=== PATIENT | male | born 1950 | race Asian ===

== ENCOUNTER 2022-03-23 12:13 | Emergency (ER) | payer OTHER, MEDICARE ==
[~2022-03-23] VITALS: Ht 167.6 cm; Wt 86.2 kg
[2022-03-23 12:23] VITALS: BP_SYST 178
--- NOTE | 2022-03-23 16:02 | NUR ---
RECEIVED PT FROM KWASI HOWE. PT HAS C/O LEFT EYE REDNESS, DISCHARGE AND SWELLING, PT IS S/P CATARACT SURGERY 3 WEEKS AGO. PT IS AAOX4. NORMAL S1S2. RESP E/U. ON R/A. DENIES N/V/D/C. PT HAS BUE TRACE EDEMA. SKIN CDI, WARM, INTACT, DISTAL PULSES NORMAL. DENIES PAIN. DAUGHTER ACCOMPANYING PT.
--- NOTE | 2022-03-23 16:04 | NUR ---
Patient to ER [facility] to [facility] for evaluation. Side rails up. Report given to KWASI EVANS.
--- NOTE | 2022-03-23 16:10 | NUR ---
DR. ELIZABETH MET WITH AND ASSESSED PT.
[2022-03-23] MEDS ORDERED: ERYEYE EACH EYE (16:26)
[2022-03-23] MEDS ORDERED: OFLO5DRO6 LEFT EYE (16:26)
[2022-03-23 16:49] VITALS: BP_SYST 162
--- NOTE | 2022-03-23 16:53 | NUR ---
Patient given written and verbal discharge instructions and verbalizes understanding. ER MD discussed with patient the results and treatment provided. Patient in stable condition. ID arm band removed. Rx of erythromycin, ofloxacin given. Patient educated on pain management and to follow up with PMD. Pain Scale 0/10. Opportunity for questions provided and answered. Medication side effect fact sheet provided.
== END 2022-03-23 16:49 | disposition home or self-care (01) ==
LOC: SED 12:13
DX: H10.32 Unspecified acute conjunctivitis, left eye (principal); H57.12 Ocular pain, left eye; Z79.899 Other long term (current) drug therapy
CPT/HCPCS: 99283

== ENCOUNTER 2022-08-28 19:35 | Inpatient (IN) | payer OTHER ==
[~2022-08-28] VITALS: Ht 172.7 cm; Wt 88.9 kg
[~2022-08-28 19:35] MED LIST: ERYEYE EACH EYE; OFLO5DRO6 LEFT EYE
[2022-08-28 19:40] VITALS: BP_SYST 145
[2022-08-28] MEDS ORDERED: NACL 0.9% 1,000 ML IV ONE (20:15)
[2022-08-28] MEDS ORDERED: PANTOPRAZOLE SODIUM 80 MG in NS 100 ML IV ONE (20:15)
[2022-08-28] MEDS ORDERED: ONDANSETRON HCL 4 MG/2 ML VIAL IVP ONE (20:15)
[2022-08-28 20:25] LABS: BASOPHILS % (AUTO) 0.4 % (0.0-2.0); EOSINOPHILS # (AUTO) 0.2 K/uL (0.0-0.4); EOSINOPHILS % (AUTO) 1.7 % (0.0-4.0); HEMATOCRIT 28.6 % (36-54); HEMOGLOBIN 9.8 g/dL (14.0-18.0); LYMPHOCYTES # (AUTO) 2.2 K/uL (1.0-5.5); LYMPHOCYTES % (AUTO) 22.2 % (20.5-51.5); MEAN CORPUSCULAR HEMOGLOBIN 34 pg (27-31); MEAN CORPUSCULAR HGB CONC 34 % (32-36); MEAN CORPUSCULAR VOLUME 98 fL (79.0-98.0); MONOCYTES # (AUTO) 0.8 K/uL (0.0-1.0); MONOCYTES % (AUTO) 8.1 % (1.7-9.3); NEUTROPHILS # (AUTO) 6.8 K/uL (1.8-7.7); NEUTROPHILS % (AUTO) 67.6 % (40.0-70.0); PLATELET COUNT (AUTO) 132 K/uL (130-430); RED BLOOD CELL COUNT(AUTO) 2.92 MIL/uL (4.2-6.2); RED CELL DISTRIBUTION WIDTH 14.9 % (9.0-15.0); WHITE BLOOD COUNT (AUTO) 10.1 K/uL (4.8-10.8)
[2022-08-28] MEDS ORDERED: PANTOPRAZOLE SODIUM 40 MG/VIAL (PROTONIX) ONE (20:27)
[2022-08-28 20:35] LABS: ANION GAP 7 (5-15); CALCIUM 8.3 mg/dL (8.4-11.0); CHLORIDE 109 mmol/L (98-107); GLUCOSE 215 mg/dL (70-99); UREA NITROGEN, BLOOD 32 mg/dL (8-21)
[2022-08-28 20:41] LABS: ALANINE AMINOTRANSFERASE 35 U/L (12-78); ALBUMIN 2.7 g/dL (3.4-4.8); ASPARTATE AMINOTRANSFERASE 25 U/L (10-37); LIPASE 173 U/L (73-393); TOTAL BILIRUBIN 0.5 mg/dL (0.0-1.0)
[2022-08-28] MEDS ORDERED: OCTREOTIDE ACETATE 500 MCG in NS 99.5 ML IV SCH (22:30)
[2022-08-28] MEDS ORDERED: OCTREOTIDE ACETATE 100 MCG/ML AMP IVP ONE (22:30)
[2022-08-28 22:31] LABS: PROTHROMBIN TIME 10.6 SECS (9.5-12.5)
[2022-08-29] MEDS: D5NS 500 ML IV SCH ×4 (00:15→18:48)
[2022-08-29 02:56] VITALS: BP_SYST 137
[2022-08-29] MEDS ORDERED: PIOG15TA8 PO (04:04)
[2022-08-29] MEDS ORDERED: METF-381 PO (04:04)
[2022-08-29] MEDS: INSULIN REGULAR, HUMAN 100 UNITS/ML, 3 ML VIAL (humuLIN R) SUBCUT PRN ×2 (06:30→18:43)
[2022-08-29 07:30] LABS: BASOPHILS % (AUTO) 0.4 % (0.0-2.0); EOSINOPHILS # (AUTO) 0.2 K/uL (0.0-0.4); EOSINOPHILS % (AUTO) 1.9 % (0.0-4.0); HEMATOCRIT 25.8 % (36-54); HEMOGLOBIN 8.9 g/dL (14.0-18.0); LYMPHOCYTES # (AUTO) 3.3 K/uL (1.0-5.5); LYMPHOCYTES % (AUTO) 32.8 % (20.5-51.5); MEAN CORPUSCULAR HEMOGLOBIN 34 pg (27-31); MEAN CORPUSCULAR HGB CONC 34 % (32-36); MEAN CORPUSCULAR VOLUME 98 fL (79.0-98.0); MONOCYTES % (AUTO) 9.9 % (1.7-9.3); NEUTROPHILS # (AUTO) 5.5 K/uL (1.8-7.7); PLATELET COUNT (AUTO) 129 K/uL (130-430); RED BLOOD CELL COUNT(AUTO) 2.64 MIL/uL (4.2-6.2); RED CELL DISTRIBUTION WIDTH 14.7 % (9.0-15.0); WHITE BLOOD COUNT (AUTO) 9.9 K/uL (4.8-10.8)
[2022-08-29 08:00] VITALS: BP_SYST 125
[2022-08-29] MEDS ORDERED: POTASSIUM CHLORIDE 20 MEQ TAB.PRT.SR PO PRN (08:00)
[2022-08-29] MEDS ORDERED: ACETAMINOPHEN 325 MG TABLET PO PRN (08:00)
[2022-08-29] MEDS ORDERED: NALOXONE HCL 0.4 MG/ML AMP (NARCAN) IVP PRN ×2 (08:00)
[2022-08-29] MEDS ORDERED: ONDANSETRON HCL 4 MG/2 ML VIAL IVP PRN (08:00)
[2022-08-29] MEDS ORDERED: MUPIROCIN 2% TOPICAL OINTMENT 22 GM NS PRN (08:00)
[2022-08-29] MEDS ORDERED: MORPHINE 2 MG/ML INJ. SYRINGE IVP PRN ×2 (08:00)
[2022-08-29] MEDS ORDERED: ZOLPIDEM TARTRATE 5 MG TABLET PO PRN (08:00)
[2022-08-29] MEDS ORDERED: DOCUSATE SODIUM 100 MG CAPSULE PO PRN (08:00)
[2022-08-29] MEDS ORDERED: LORazepam 2 MG/ML VIAL IVP PRN (08:00)
[2022-08-29] MEDS ORDERED: MAGNESIUM SULFATE 50 ML IV PRN (08:00)
[2022-08-29 08:34] LABS: ANION GAP 7 (5-15); CALCIUM 8.1 mg/dL (8.4-11.0); CHLORIDE 110 mmol/L (98-107); CREATININE 0.63 mg/dL (0.55-1.30); GLUCOSE 211 mg/dL (70-99); UREA NITROGEN, BLOOD 31 mg/dL (8-21)
[2022-08-29 08:39] LABS: ALANINE AMINOTRANSFERASE 30 U/L (12-78); ALBUMIN 2.5 g/dL (3.4-4.8); ASPARTATE AMINOTRANSFERASE 22 U/L (10-37); TOTAL BILIRUBIN 0.6 mg/dL (0.0-1.0)
[2022-08-29] MEDS ORDERED: OFLOXACIN 0.3% OPHTHALMIC DROPS 5 ML LEFT EYE SCH (09:00)
[2022-08-29] MEDS ORDERED: PANTOPRAZOLE SODIUM 40 MG/VIAL (PROTONIX) IVP SCH (09:00)
[2022-08-29 09:43] LABS: TOTAL IRON BIND. CAPACITY 190 ug/dL (250-450)
[2022-08-29] MEDS ORDERED: fentaNYL CITRATE/PF 100 MCG/2 ML AMP ONE (12:28)
[2022-08-29] MEDS ORDERED: SIMETHICONE 40 MG/0.6 ML ML ONE (12:28)
[2022-08-29] MEDS ORDERED: MIDAZOLAM HCL 5 MG/5 ML VIAL ONE (12:29)
[2022-08-29 12:45] VITALS: BP_SYST 157
[2022-08-29] MEDS ORDERED: OCTREOTIDE ACETATE 50 MCG/ML AMP IVP ONE (13:15)
[2022-08-29] MEDS: cefTRIAXone 1 GM in D5W 50 ML IV SCH (15:59)
[2022-08-29] MEDS: PANTOPRAZOLE SODIUM 40 MG in NS 50 ML IV SCH ×2 (15:59→20:54)
[2022-08-29 16:00] VITALS: BP_SYST 159
[2022-08-29] MEDS: OCTREOTIDE ACETATE 1,250 MCG in NS 250 ML IV SCH (18:45)
[2022-08-29] MEDS ORDERED: REPA2TAB12 PO (19:40)
[2022-08-29 20:00] VITALS: BP_SYST 144
[2022-08-29 20:18] LABS: BASOPHILS % (AUTO) 0.4 % (0.0-2.0); EOSINOPHILS # (AUTO) 0.3 K/uL (0.0-0.4); EOSINOPHILS % (AUTO) 3.2 % (0.0-4.0); HEMATOCRIT 24.6 % (36-54); HEMOGLOBIN 8.3 g/dL (14.0-18.0); LYMPHOCYTES # (AUTO) 2.7 K/uL (1.0-5.5); LYMPHOCYTES % (AUTO) 27.3 % (20.5-51.5); MEAN CORPUSCULAR HEMOGLOBIN 34 pg (27-31); MEAN CORPUSCULAR HGB CONC 34 % (32-36); MONOCYTES % (AUTO) 10.2 % (1.7-9.3); NEUTROPHILS # (AUTO) 5.7 K/uL (1.8-7.7); NEUTROPHILS % (AUTO) 58.9 % (40.0-70.0); PLATELET COUNT (AUTO) 132 K/uL (130-430); RED BLOOD CELL COUNT(AUTO) 2.46 MIL/uL (4.2-6.2); RED CELL DISTRIBUTION WIDTH 15.2 % (9.0-15.0); WHITE BLOOD COUNT (AUTO) 9.8 K/uL (4.8-10.8)
[2022-08-29 20:19] LABS: MEAN CORPUSCULAR VOLUME 100 fL (79.0-98.0)
[2022-08-30] MEDS: INSULIN REGULAR, HUMAN 100 UNITS/ML, 3 ML VIAL (humuLIN R) SUBCUT PRN ×4 (00:06→18:32)
[2022-08-30 00:51] VITALS: BP_SYST 136
[2022-08-30] MEDS: cefTRIAXone 1 GM in D5W 50 ML IV SCH ×4 (01:36→16:02)
[2022-08-30] MEDS: PANTOPRAZOLE SODIUM 40 MG in NS 50 ML IV SCH ×5 (01:46→20:53)
[2022-08-30] MEDS: D5NS 500 ML IV SCH ×3 (03:36→17:54)
[2022-08-30 07:11] LABS: BASOPHILS # (AUTO) 0.1 K/uL (0.0-0.2); BASOPHILS % (AUTO) 0.7 % (0.0-2.0); EOSINOPHILS # (AUTO) 0.4 K/uL (0.0-0.4); EOSINOPHILS % (AUTO) 4.2 % (0.0-4.0); HEMOGLOBIN 8.7 g/dL (14.0-18.0); LYMPHOCYTES # (AUTO) 2.5 K/uL (1.0-5.5); LYMPHOCYTES % (AUTO) 28.1 % (20.5-51.5); MEAN CORPUSCULAR HEMOGLOBIN 33 pg (27-31); MEAN CORPUSCULAR HGB CONC 34 % (32-36); MEAN CORPUSCULAR VOLUME 99 fL (79.0-98.0); MONOCYTES # (AUTO) 0.9 K/uL (0.0-1.0); MONOCYTES % (AUTO) 10.3 % (1.7-9.3); NEUTROPHILS % (AUTO) 56.7 % (40.0-70.0); PLATELET COUNT (AUTO) 139 K/uL (130-430); RED BLOOD CELL COUNT(AUTO) 2.62 MIL/uL (4.2-6.2); RED CELL DISTRIBUTION WIDTH 14.8 % (9.0-15.0); WHITE BLOOD COUNT (AUTO) 8.9 K/uL (4.8-10.8)
[2022-08-30 07:22] LABS: ANION GAP 9 (5-15); CALCIUM 8.3 mg/dL (8.4-11.0); CHLORIDE 108 mmol/L (98-107); CREATININE 0.61 mg/dL (0.55-1.30); GLUCOSE 188 mg/dL (70-99); UREA NITROGEN, BLOOD 16 mg/dL (8-21)
[2022-08-30 08:00] VITALS: BP_SYST 136
[2022-08-30 11:08] LABS: FOLATE (FOLIC ACID) 12.2 ng/mL (>3.0)
[2022-08-30] MEDS: OCTREOTIDE ACETATE 1,250 MCG in NS 250 ML IV SCH (16:00)
[2022-08-30 16:09] VITALS: BP_SYST 133
[2022-08-30 19:50] VITALS: BP_SYST 140
[2022-08-31] MEDS: INSULIN REGULAR, HUMAN 100 UNITS/ML, 3 ML VIAL (humuLIN R) SUBCUT PRN ×5 (00:06→23:51)
[2022-08-31 00:47] VITALS: BP_SYST 136
[2022-08-31] MEDS: PANTOPRAZOLE SODIUM 40 MG in NS 50 ML IV SCH ×5 (01:21→21:34)
[2022-08-31] MEDS: D5NS 500 ML IV SCH ×4 (01:22→21:35)
[2022-08-31 06:53] LABS: BASOPHILS # (AUTO) 0.1 K/uL (0.0-0.2); BASOPHILS % (AUTO) 0.6 % (0.0-2.0); EOSINOPHILS # (AUTO) 0.4 K/uL (0.0-0.4); EOSINOPHILS % (AUTO) 4.6 % (0.0-4.0); HEMATOCRIT 23.6 % (36-54); HEMOGLOBIN 8.1 g/dL (14.0-18.0); LYMPHOCYTES # (AUTO) 2.2 K/uL (1.0-5.5); MEAN CORPUSCULAR HEMOGLOBIN 34 pg (27-31); MEAN CORPUSCULAR HGB CONC 34 % (32-36); MEAN CORPUSCULAR VOLUME 100 fL (79.0-98.0); MONOCYTES % (AUTO) 11.8 % (1.7-9.3); NEUTROPHILS # (AUTO) 5.1 K/uL (1.8-7.7); PLATELET COUNT (AUTO) 139 K/uL (130-430); RED BLOOD CELL COUNT(AUTO) 2.37 MIL/uL (4.2-6.2); RED CELL DISTRIBUTION WIDTH 14.6 % (9.0-15.0); WHITE BLOOD COUNT (AUTO) 8.8 K/uL (4.8-10.8)
[2022-08-31 07:37] LABS: ALANINE AMINOTRANSFERASE 28 U/L (12-78); ALBUMIN 2.4 g/dL (3.4-4.8); ANION GAP 8 (5-15); ASPARTATE AMINOTRANSFERASE 21 U/L (10-37); CALCIUM 7.8 mg/dL (8.4-11.0); CHLORIDE 107 mmol/L (98-107); CREATININE 0.68 mg/dL (0.55-1.30); GLUCOSE 221 mg/dL (70-99); TOTAL BILIRUBIN 0.5 mg/dL (0.0-1.0); UREA NITROGEN, BLOOD 10 mg/dL (8-21)
[2022-08-31 08:07] VITALS: BP_SYST 143
[2022-08-31] MEDS: OCTREOTIDE ACETATE 1,250 MCG in NS 250 ML IV SCH (10:42)
[2022-08-31 12:00] VITALS: BP_SYST 134
[2022-08-31 14:32] LABS: BASOPHILS % (AUTO) 0.4 % (0.0-2.0); EOSINOPHILS # (AUTO) 0.3 K/uL (0.0-0.4); EOSINOPHILS % (AUTO) 3.6 % (0.0-4.0); HEMOGLOBIN 8.5 g/dL (14.0-18.0); LYMPHOCYTES # (AUTO) 2.1 K/uL (1.0-5.5); LYMPHOCYTES % (AUTO) 23.9 % (20.5-51.5); MEAN CORPUSCULAR HEMOGLOBIN 34 pg (27-31); MEAN CORPUSCULAR HGB CONC 34 % (32-36); MEAN CORPUSCULAR VOLUME 100 fL (79.0-98.0); MONOCYTES # (AUTO) 1.1 K/uL (0.0-1.0); MONOCYTES % (AUTO) 12.5 % (1.7-9.3); NEUTROPHILS # (AUTO) 5.3 K/uL (1.8-7.7); NEUTROPHILS % (AUTO) 59.6 % (40.0-70.0); PLATELET COUNT (AUTO) 147 K/uL (130-430); RED CELL DISTRIBUTION WIDTH 14.8 % (9.0-15.0)
[2022-08-31] MEDS: cefTRIAXone 1 GM in D5W 50 ML IV SCH (15:37)
[2022-08-31 16:00] VITALS: BP_SYST 128
[2022-08-31 19:50] VITALS: BP_SYST 140
[2022-09-01] VITALS: BP_SYST 137
[2022-09-01] MEDS: PANTOPRAZOLE SODIUM 40 MG in NS 50 ML IV SCH ×3 (04:22→12:57)
[2022-09-01] MEDS: D5NS 500 ML IV SCH ×3 (04:58→19:57)
[2022-09-01 06:26] LABS: BASOPHILS % (AUTO) 0.5 % (0.0-2.0); EOSINOPHILS # (AUTO) 0.4 K/uL (0.0-0.4); EOSINOPHILS % (AUTO) 4.4 % (0.0-4.0); HEMATOCRIT 25.3 % (36-54); HEMOGLOBIN 8.6 g/dL (14.0-18.0); LYMPHOCYTES # (AUTO) 2.2 K/uL (1.0-5.5); LYMPHOCYTES % (AUTO) 25.4 % (20.5-51.5); MEAN CORPUSCULAR HEMOGLOBIN 34 pg (27-31); MEAN CORPUSCULAR HGB CONC 34 % (32-36); MEAN CORPUSCULAR VOLUME 99 fL (79.0-98.0); MONOCYTES # (AUTO) 1.2 K/uL (0.0-1.0); MONOCYTES % (AUTO) 14.5 % (1.7-9.3); NEUTROPHILS # (AUTO) 4.7 K/uL (1.8-7.7); NEUTROPHILS % (AUTO) 55.2 % (40.0-70.0); PLATELET COUNT (AUTO) 149 K/uL (130-430); RED BLOOD CELL COUNT(AUTO) 2.55 MIL/uL (4.2-6.2); RED CELL DISTRIBUTION WIDTH 15.1 % (9.0-15.0); WHITE BLOOD COUNT (AUTO) 8.5 K/uL (4.8-10.8)
[2022-09-01 06:46] LABS: ANION GAP 9 (5-15); CALCIUM 7.9 mg/dL (8.4-11.0); CHLORIDE 106 mmol/L (98-107); CREATININE 0.61 mg/dL (0.55-1.30); GLUCOSE 198 mg/dL (70-99); UREA NITROGEN, BLOOD 7 mg/dL (8-21)
[2022-09-01] MEDS: INSULIN REGULAR, HUMAN 100 UNITS/ML, 3 ML VIAL (humuLIN R) SUBCUT PRN ×3 (07:04→18:55)
[2022-09-01 07:40] VITALS: BP_SYST 135
[2022-09-01 11:31] VITALS: BP_SYST 145
[2022-09-01] MEDS: cefTRIAXone 1 GM in D5W 50 ML IV SCH (15:38)
[2022-09-01] MEDS: OCTREOTIDE ACETATE 1,250 MCG in NS 250 ML IV SCH (15:39)
[2022-09-01 16:01] VITALS: BP_SYST 149
[2022-09-01] MEDS: NYSTATIN 500,000 UNITS/5 ML UDC PO SCH (18:49)
[2022-09-01 20:00] VITALS: BP_SYST 156
[2022-09-01] MEDS: PROPRANOLOL HCL 10 MG TABLET (INDERAL) PO SCH (22:09)
[2022-09-02] MEDS: NYSTATIN 500,000 UNITS/5 ML UDC PO SCH ×3 (00:07→12:16)
[2022-09-02 00:12] VITALS: BP_SYST 122
[2022-09-02] MEDS: INSULIN REGULAR, HUMAN 100 UNITS/ML, 3 ML VIAL (humuLIN R) SUBCUT PRN ×3 (00:15→12:19)
[2022-09-02] MEDS: D5NS 500 ML IV SCH ×2 (03:06→09:49)
[2022-09-02 03:07] LABS: HEPATITIS B SURFACE AG Negative (Negative); HEPATITIS C VIRUS AB Non Reactive s/co ratio (0.0-0.9)
[2022-09-02 07:05] LABS: BASOPHILS # (AUTO) 0.1 K/uL (0.0-0.2); BASOPHILS % (AUTO) 0.9 % (0.0-2.0); EOSINOPHILS # (AUTO) 0.2 K/uL (0.0-0.4); EOSINOPHILS % (AUTO) 3.1 % (0.0-4.0); HEMATOCRIT 25.1 % (36-54); HEMOGLOBIN 8.6 g/dL (14.0-18.0); LYMPHOCYTES # (AUTO) 2.1 K/uL (1.0-5.5); LYMPHOCYTES % (AUTO) 27.4 % (20.5-51.5); MEAN CORPUSCULAR HEMOGLOBIN 34 pg (27-31); MEAN CORPUSCULAR HGB CONC 34 % (32-36); MEAN CORPUSCULAR VOLUME 99 fL (79.0-98.0); MONOCYTES # (AUTO) 1.4 K/uL (0.0-1.0); MONOCYTES % (AUTO) 18.3 % (1.7-9.3); NEUTROPHILS # (AUTO) 3.8 K/uL (1.8-7.7); NEUTROPHILS % (AUTO) 50.3 % (40.0-70.0); PLATELET COUNT (AUTO) 149 K/uL (130-430); RED BLOOD CELL COUNT(AUTO) 2.54 MIL/uL (4.2-6.2); RED CELL DISTRIBUTION WIDTH 15.4 % (9.0-15.0); WHITE BLOOD COUNT (AUTO) 7.5 K/uL (4.8-10.8)
[2022-09-02 07:57] LABS: ALANINE AMINOTRANSFERASE 21 U/L (12-78); ALBUMIN 2.3 g/dL (3.4-4.8); ANION GAP 7 (5-15); ASPARTATE AMINOTRANSFERASE 22 U/L (10-37); CALCIUM 7.6 mg/dL (8.4-11.0); CHLORIDE 106 mmol/L (98-107); CREATININE 0.68 mg/dL (0.55-1.30); GLUCOSE 192 mg/dL (70-99); TOTAL BILIRUBIN 0.5 mg/dL (0.0-1.0); UREA NITROGEN, BLOOD 8 mg/dL (8-21)
[2022-09-02 08:00] VITALS: BP_SYST 131
[2022-09-02] MEDS ORDERED: PANTOPRAZOLE SODIUM 40 MG TAB PO SCH (09:00)
[2022-09-02] MEDS: PROPRANOLOL HCL 10 MG TABLET (INDERAL) PO SCH (09:47)
[2022-09-02] MEDS ORDERED: AZITHROMYCIN 250 MG TABLET PO ONE (11:15)
[2022-09-02 11:35] VITALS: BP_SYST 131
[2022-09-02] MEDS ORDERED: PROP10TA10 PO (12:11)
[2022-09-02] MEDS ORDERED: AMOX-423 PO (12:12)
[2022-09-02] MEDS ORDERED: PRO40 PO (12:13)
[2022-09-02] MEDS ORDERED: Nystatin PO (12:15)
[2022-09-02 13:42] VITALS: BP_SYST 130
[2022-09-03] MEDS ORDERED: AZITHROMYCIN 250 MG TABLET PO SCH (09:00)
[2022-09-04 12:24] LABS: HEPATITIS B CORE AB, TOTAL Positive (Negative)
== END 2022-09-02 14:00 | disposition home or self-care (01) | DRG 432 ==
LOC: SED 19:35 → STU 22:50 → SMU 08-31 17:42
PROVIDERS: ADMIT General Practice; ATTEND General Practice
PROC: 0DB68ZX Excision of Stomach, Via Natural or Artificial Opening Endoscopic, Diagnostic (ICD-10-PCS; principal; 2022-08-29 12:00)
PROC: 06L38CZ Occlusion of Esophageal Vein with Extraluminal Device, Via Natural or Artificial Opening Endoscopic (ICD-10-PCS; 2022-08-29 12:00)
DX: K74.60 Unspecified cirrhosis of liver (principal); I85.11 Secondary esophageal varices with bleeding; E11.9 Type 2 diabetes mellitus without complications; M17.0 Bilateral primary osteoarthritis of knee; D64.9 Anemia, unspecified; Z20.822 Contact with and (suspected) exposure to COVID-19
CPT/HCPCS: 36415; 43239; 43244; 71045; 76700-TC; 80048; 80053; 82105; 82607; 82728; 82746; 82962; 83037; 83540; 83550; 83690; 83735; 85025; 85610-TC; 85730-TC; 86704; 86706; 86803; 86886; 86900; 86901; 87081; 87340; 93005; 96361; 96374; 96375; 99285; C9113; G0378; J0696; J1815; J2250; J2354; J2405; J3010; J7050; J7060; Q0144